=== PATIENT | female | born 1985 | race African-American/Black ===

== ENCOUNTER 2019-09-01 07:13 | Emergency (ER) | payer OTHER, SELFPAY ==
--- NOTE | ~2019-09-01 | XR_ITS ---
EXAMINATION: XR lumbar spine 2-3V DATE: 09/01/2019 07:49 INDICATION: Low back pain TECHNIQUE: Anteroposterior and lateral views of the lumbar spine, and cone-down lateral view of the l umbosacral junction were obtained. COMPARISON: None. FINDINGS: 4 mm retrolisthesis L5 on S1, 1-2 mm retrolisthesis L4 on L5. Vertebral body heights are normal. Mild disc height loss at L4-L5. Sacrum and bilateral sacroiliac joints are normal. Cholecystectomy clips in right upper quadrant. 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 Normal bowel gas pattern. Lung bases are clear. IMPRESSION: 1. Mild lower lumbar spondylosis. Reviewed, dictated and finalized at location A.
[2019-09-01 07:25] VITALS: BP 127/86; PULSE 68; RESP 17; TEMP 37; O2SAT 100
--- NOTE | 2019-09-01 07:31 | ED.BACK ---
HPI - Back Pain/Injury General Chief Complaint: Back Pain/Injury Stated Complaint: Low back pain Time Seen by Provider: 09/01/19 07:20 History of Present Illness HPI Narrative: Patient is a 34-year-old female who presents to the ER with low back pain. 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 She was climbing down a ladder when she felt a sudden pain in the left lumbar region. No saddle anesthesia or urinary/fecal incontinence/retention. She has had no radiating pain down her extremities or any lower extremities numbness/weakness. She has not tried any pain medication. No additional injury or concern. Related Data Allergies Allergy/AdvReac Type Severity Reaction Status Date / Time No Known Allergies Allergy Verified 09/01/19 07:31 Review of Systems Review of Systems: All systems reviewed & are unremarkable except as noted in HPI and below Genitourinary: Comments: No urinary or fecal incontinence. No saddle anesthesia. Musculoskeletal: Musculoskeletal: Reports back pain Neurologic: Denies focal weakness, Denies numbness and Denies weakness PMFSH Past Medical History Medical History (Updated 09/01/19 @ 08:38 by Gaetano Oleary MD) No pertinent past medical history Surgical History Surgical History (Updated 09/01/19 @ 08:36 by Gaetano Oleary MD) History of cholecystectomy Social History Social History (Updated 09/01/19 @ 08:36 by Gaetano Oleary MD) Smoking status: Never smoker Alcohol intake: never Gender identity (if verbalized by the patient): Female Exam Narrative: Exam Narrative: GENERAL: Well-appearing, well-nourished, and in no acute distress. HEAD: Normocephalic, atraumatic. ENT: Mucous membranes moist. CHEST: Clear to auscultation. No respiratory distress. HEART: Regular rate and rhythm. Normal peripheral pulses. EXTREMITIES: Normal range of motion. No edema. Back: No midline tenderness of the thoracic or lumbar spine. There is paraspinal point tenderness left L3 region without swelling or bruising. NEURO: Alert and oriented x3. Course Course Emergency Course: Patient informed of results. Discussed treatment plan. Discharge home. Vital Signs Vital signs: Vital Signs Temperature 98.6 F 09/01/19 07:25 Pulse Rate 68 09/01/19 07:25 Respiratory Rate 17 09/01/19 07:25 Blood Pressure 127/86 09/01/19 07:25 Pulse Oximetry 100 09/01/19 07:25 Temperature 98.6 F 09/01/19 07:25 Pulse Rate 89 09/01/19 07:50 Respiratory Rate 20 09/01/19 07:50 Blood Pressure 151/86 H 09/01/19 07:50 Pulse Oximetry 95 09/01/19 07:50 MDM - Back Pain/Injury Imaging Data Radiologist's impression: ITS Impressions Lumbar Spine X-Ray 09/01/19 07:51 IMPRESSION: 1. Mild lower lumbar spondylosis. Discharge Plan Discharge Clinical Impression: Strain of lumbar region Qualifiers: Encounter type: initial encounter Qualified Code(s): S39.012A - Strain of muscle, fascia and tendon of lower back, initial encounter Patient Disposition: Home, Self-Care Condition: Stable Instructions: Low Back Strain (ED) Additional Instructions: Return to the ER if you have increased pain in your back, you develop lower extremity weakness/numbness/paralysis, you have numbness or tingling in your private parts, or you are unable to control your ability to urinate/stool. Do not take Flexeril while operating heavy machinery as it may make you sleepy and impair your ability to operate the machine safely. Prescriptions: New naproxen 500 mg tablet 500 mg PO BID Qty: 20 RF: 0 cyclobenzaprine 5 mg tablet 5 mg PO TID PRN (Reason: muscle spasm) Qty: 14 RF: 0 Follow-up/Referrals: Dallin Claros Jr., MD [Physician] - 1 Week PHYSICIAN,EDITORIAL DIRECTOR [Primary Care Provider] -
[2019-09-01] MEDS: KETOROLAC 30 MG/ML VIAL (*BKC) IM (07:38)
[2019-09-01 07:50] VITALS: BP 151/86; PULSE 89; RESP 20; O2SAT 95
[2019-09-01 08:50] VITALS: BP 134/83; PULSE 63; RESP 18; O2SAT 100
== END 2019-09-01 08:56 | disposition home or self-care (01) ==
PROVIDERS: Emergency Provider Emergency Medicine
DX: S39.012A Strain of muscle, fascia and tendon of lower back, initial encounter (principal); M47.816 Spondylosis without myelopathy or radiculopathy, lumbar region; X50.9XXA Other and unspecified overexertion or strenuous movements or postures, initial encounter
CPT/HCPCS: 72100; 96372; 99283; J1885